=== PATIENT | female | born 1955 | race Caucasian/White ===

== ENCOUNTER 2020-01-28 11:38 | Emergency (ER) | payer OTHER ==
[~2020-01-28] VITALS: Ht 165.1 cm; Wt 107.0 kg
[2020-01-28] MEDS ORDERED: ONDANSETRON 2MG/ML, 2ML IVPush ONE (12:00)
[2020-01-28] MEDS ORDERED: HYDROmorphone 1 MG/ML, 1ML INJ IV ONE (12:00)
[2020-01-28] MEDS ORDERED: ONDANSETRON 2MG/ML, 2ML ONE (12:06)
[2020-01-28] MEDS ORDERED: HYDROmorphone 1 MG/ML, 1ML INJ ONE (12:06)
--- NOTE | 2020-01-28 12:19 | NUR ---
pt edgar, report taken from [facility]. 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 pt tolerating well. bp and spo2 monitors in place. spo2 dropped to 89% s/p dilaudid, oxygen applied at 2L/min via NC, now saturating at 99% on 2L. pt reports pain control improved s/p dilaudid. pts left arm propped on pillows, awaiting radiology and dispo.
[2020-01-28] MEDS ORDERED: PLEASE ENTER HEIGHT AND WEIGHT MC SCH (12:30)
--- NOTE | 2020-01-28 12:37 | NUR ---
RADIOLOGY PAGED TO COMPLETE XRAYS.
[2020-01-28 13:21] VITALS: BP 152/78
--- NOTE | 2020-01-28 13:30 | NUR ---
XRAYS COMPLETE, RESULTS REVIEWED BY EDPA, JEREMIAH AND OUTPATIENT ORTHO F/U ORDERED.
--- NOTE | 2020-01-28 14:22 | NUR ---
SLING PLACED BY EDT, PT TOLERATED WELL. PT GIVEN DC INSTRUCTIONS AND SCRIPT, EDUCATED REGARDING RX FOR NORCO. PT AMBULATORY WITH STEADY GAIT, GIVEN WC ESCORT TO DC. PT A&O, RESPS EVEN AND UNLABORED, NADN AT DC.
== END 2020-01-28 14:25 | disposition home or self-care (01) ==
LOC: ED 14:21
DX: S42.202A Unspecified fracture of upper end of left humerus, initial encounter for closed fracture (principal); I10 Essential (primary) hypertension; J44.9 Chronic obstructive pulmonary disease, unspecified; Z96.651 Presence of right artificial knee joint; W18.39XA Other fall on same level, initial encounter; Y93.89 Activity, other specified; Y92.89 Other specified places as the place of occurrence of the external cause; Y99.8 Other external cause status
CPT/HCPCS: 29240; 73010; 73030; 96374; 96375; 99284; J1170; J2405